=== PATIENT | female | born 1930 | race Caucasian/White ===

== ENCOUNTER → 2017-04-22 | Outpatient (CLI) | payer OTHER ==
--- NOTE | ~2017-04-22 | CR63 ---
[facility] A Service of [facility] & [facility] RADIOLOGY TEXT RESULTS PATIENT: ROSHNI OLMEDO LOCATION: [facility] : 34 UNIT #: [id number] AGE: [address]: Adolfo Adan MD SEX: F ORDER DR: [id number] [facility] [address] [place], [place] [address] [id number] O MR#: [id number] Acc #: [id number] NAME: ROSHNI OLMEDO : 1930 SEX: F STUDY DATE/TIME: 04/22/2017 9:51 UNIT: [facility] ROOM: STUDY DESCRIPTION: CR Chest 2 View Attending Physician: Adolfo Adan M.D. Referring Physician: Adolfo Adan M.D. Ordering Physician: Adolfo Adan M.D. Primary Care Physician: Gladis Gonzalez M.D. MEDICAL IMAGING REPORT This report is preliminary unless electronic signature is present EXAM Chest, 04/22/2017, [facility]. HISTORY 86-year-old woman, short of air for past 4 months. Patient indicates cough, high blood pressure, previous heart attack with coronary stenting. 75-year smoking history. COMPARISON Chest 07/21/2013. FINDINGS Two-view chest demonstrates normal heart size with minimal calcification noted in the aortic arch. Lungs are only mildly hyperinflated. There are no infiltrates. I see no lung mass and no effusions. Generalized demineralization is noted with mild compression of the mid to lower thoracic vertebrae. Calcified thoracic disc also noted. IMPRESSION No acute chest finding. Mild pulmonary hyperinflation consistent with COPD. Minimal calcification noted in the aortic arch with coronary stent faintly visible. Generalized demineralization. Dictated by... Pablo Leary M.D. THIS IS AN ELECTRONICALLY VERIFIED REPORT Pablo Leary M.D. at 04/23/2017 8:10 AM Edis TD: 04/22/2017 17:25 JOB #: [id number] [facility] A Service of [facility] & [facility] RADIOLOGY TEXT RESULTS PATIENT: ROSHNI OLMEDO LOCATION: [facility] #: [id number] : 34 UNIT #: [id number] AGE: [address]: Adolfo Adan MD SEX: F ORDER DR: MEDICAL IMAGING REPORT Page 1 of 1 COPY
--- NOTE | ~2017-04-22 | US10 ---
[id number] [facility] [address] [place], [place] [address] [id number] O MR#: [id number] Acc #: [id number] NAME: ROSHNI OLMEDO : 1930 SEX: F STUDY DATE/TIME: 04/22/2017 10:30 UNIT: [facility] ROOM: STUDY DESCRIPTION: US Aorta Complete Attending Physician: Adolfo Adan M.D. Referring Physician: Adolfo Adan M.D. Ordering Physician: Adolfo Adan M.D. Primary Care Physician: Gladis Gonzalez M.D. MEDICAL IMAGING REPORT This report is preliminary unless electronic signature is present EXAM Ultrasound of the aorta, 04/22/2017. HISTORY Abdominal aortic aneurysm screening. History of smoking. TECHNIQUE High-resolution B-mode imaging and color flow Doppler analysis was performed of the abdominal aorta and iliac arteries in longitudinal and transverse views. FINDINGS The abdominal aorta measures 2.1 cm in greatest diameter in its proximal segment, 2.2 cm in greatest diameter in its mid segment, and 1.6 cm in greatest diameter in its distal segment. The right common iliac artery measures about 7 mm in diameter. The left common iliac artery measures about 10 mm in diameter. There is no focal elevation of Doppler velocities at any level to suggest significant stenosis. IMPRESSION Normal examination of the abdominal aorta and iliac arteries. No aneurysm is demonstrated. Dictated by... Rick Zavala M.D. THIS IS AN ELECTRONICALLY VERIFIED REPORT Rick Zavala M.D. at 04/23/2017 7:37 AM Stephanie TD: 04/22/2017 14:19 JOB #: [id number] MEDICAL IMAGING REPORT Page 1 of 1 COPY
== END | disposition home or self-care (01) ==
LOC: CGUS 09:21
DX: I25.10 Atherosclerotic heart disease of native coronary artery without angina pectoris (principal); R06.02 Shortness of breath; Z72.0 Tobacco use
CPT/HCPCS: 71020; 76770